=== PATIENT | male | born 1990 | race Caucasian/White ===

== ENCOUNTER → 2016-08-22 | Outpatient (REF) ==
[~2016-08-22] MED LIST: ADVIL PO; FISH1000 PO; GABA-283 PO; TRAZ150T14 PO
--- NOTE | 2016-08-22 13:59 | REP ---
Clinical: Pain and disability. Technique: AP and lateral views of the nasal bones. Findings: Subtle nondisplaced nasal bone fracture cannot be excluded and should be correlated with physical examination and history. The remainder of the osseous structures and surrounding soft tissues are normal. Impression: Innumerable nutrient foramen. Cannot exclude nondisplaced nasal bone fracture. Signed by Ibrahima Douglas MD 08/22/2016 01:50 P
--- NOTE | 2016-08-22 14:00 | REP ---
Clinical: Pain and disability. Technique: AP and lateral views of the right and left tibia / fibula. Findings: Osseous structures, joint spaces, and surrounding soft tissues appear normal. No evidence for acute or healed fracture/dislocation. No subcutaneous emphysema or radiodense foreign body. Bipartite right patella suggested. Impression: Normal bilateral tibia / fibula. Signed by Ibrahima Douglas MD 08/22/2016 01:51 P
== END ==
LOC: M SMT 12:57
PROVIDERS: ATTEND Internal Medicine
DX: Z02.71 Encounter for disability determination (principal)

== ENCOUNTER 2016-10-19 04:34 | Inpatient (IN) | payer OTHER ==
[~2016-10-19] VITALS: Ht 165.1 cm; Wt 95.3 kg
[2016-10-19] MEDS ORDERED: LEXA1TAB2 PO (04:44)
[2016-10-19 05:36] LABS: MEAN CORPUSCULAR HEMOGLOBIN 29.4 pg (27.0-33.0); MEAN CORPUSCULAR HGB CONC 33.8 g/dl (32.0-36.5); RED CELL DISTRIBUTION WIDTH 13.1 % (11.5-14.5); WHITE BLOOD COUNT 7.4 K/mm3 (4.0-10.0)
[2016-10-19] MEDS ORDERED: IBUP800T23 PO (05:40)
[2016-10-19] MEDS ORDERED: TRAZ150T14 PO (05:40)
[2016-10-19 05:57] LABS: METHADONE URINE NEGATIVE (NEGATIVE)
[2016-10-19 06:04] LABS: ALBUMIN 3.8 GM/DL (3.2-5.2); ALBUMIN/GLOBULIN RATIO 1.19 (1.00-1.93); ALKALINE PHOSPHATASE 99 U/L (45-117); ALT/SGPT 43 U/L (12-78); ANION GAP 7 MEQ/L (8-16); AST/SGOT 28 U/L (15-37); BILIRUBIN,DIRECT 0.1 MG/DL (0.0-0.2); BILIRUBIN,TOTAL 0.4 MG/DL (0.2-1.0); BLOOD UREA NITROGEN 18 MG/DL (7-18); CALCIUM LEVEL 8.6 MG/DL (8.5-10.1); CARBON DIOXIDE LEVEL 27 MEQ/L (21-32); CHLORIDE LEVEL 107 MEQ/L (98-107); CREATININE FOR GFR 1.16 MG/DL (0.70-1.30); GLOMERULAR FILTRATION RATE > 60.0 (>60); GLUCOSE, FASTING 100 MG/DL (70-105); POTASSIUM SERUM 4.2 MEQ/L (3.5-5.1); SODIUM LEVEL 141 MEQ/L (136-145)
[2016-10-19] MEDS ORDERED: ACETAMINOPHEN TAB 650MG DOSE (2X325MG) PO PRN (07:00)
[2016-10-19] MEDS ORDERED: MAALOX 30 ML SUSP *UDC PO PRN (07:00)
[2016-10-19] MEDS ORDERED: traZODone 50 MG TAB PO PRN (07:00)
[2016-10-19 08:35] VITALS: BP 138/66
[2016-10-19] MEDS ORDERED: PROTPOW11 PO (08:42)
[2016-10-19] MEDS: ESCITALOPRAM OXALATE 10 MG TAB (LEXAPRO) PO SCH (11:23)
--- NOTE | 2016-10-19 11:25 | HPEPDOC ---
Medical History and Physical Date of Admission Oct 19, 2016 at 07:00 History and Physical PCP: [facility] ATTENDING: Dr. Efrain Oseguera HPI: 26 yo M admitted to [facility] for depressive disorder NOS, being medically examined today. No acute medical complaints today. Denies any fevers, chills, weakness, fatigue, DAVIDSON, CP, SOB, cough, palpitations, abdominal pain, N/V/D or changes in bowel or bladder habits. PMHx: Depression Anxiety Chronic Rt knee pain PSHX: History of nasal fracture 2 Right hand fracture Left hand fracture [place] teeth extraction SOCHX: Resides in: [facility], from [place] Marital Status: Single Kids: None Employment: Active duty Tobacco use: 4 per day ETOH: denies Illicit Drugs: denies, Stopped marijuana approximately 1 year ago IV Drug Use: Denies Tattoos done unprofessionally: Denies FAMHX: Mother: Alive, history of metastatic cancer Father: Unknown Siblings: 1 Brother well. Children: None Unexpected deaths due to medical reasons: None. ROS: As noted in HPI, otherwise 11pt ROS of systems reviewed and remarkable for LBP. Denies LE pain. No LE weakness, paresthesia. No prior imaging of LS spine but he would like this done. States it is worse with sleeping in bed here. PE: GEN: 26 yo M, appears stated age. Well-nourished, well developed. No acute distress. Alert and oriented x 3. Pleasant, interactive. HEENT: Normocephalic, atraumatic. Pupils are equal, round, and reactive to light. Extraocular movements are intact. No nystagmus appreciated. Sclera are nonicteric. Conjunctiva without injection. Nose midline. Nasal turbinates without bogginess. EACs both patent BL. TMs both visualized and stephens with good cone of light, no bulging or erythema. No facial asymmetry. Moist mucous membranes. Dentition fair. Pharynx pink and moist, no cobblestoning. Neck supple , trachea midline. No lymphadenopathy or thyromegaly appreciated. CHEST: Regular rate and rhythm, +S1, +S2 LUNGS: Clear to auscultation bilaterally. No wheezes, rales, or rhonchi. Breathing appears symmetric and easy. Patient is speaking in full sentences. No accessory muscle use. ABD: Round, soft, non-tender, non-distended. +Bowel sounds throughout. No rebound or guarding. No costovertebral angle tenderness. EXT: Pulses 2+ bilaterally dorsalis pedis and radial. No lower extremity edema appreciated. SKIN: Stevenson, dry, warm. Capillary refill <2sec. No rashes. NEURO: Alert and oriented x 3. Cranial nerves III-XII are intact. No focal deficits appreciated. EK05/03/[address] SIN[address] RHYTHM [address] ELEVATION, PROBABLY EARLY REPOLARIZATION NO PRIOR t wave abn INFERIOR QS NOT PATHOLOGIC A&P: 26 yo M admitted to [facility] for unspecified depressive disorder 1. Psych. Plan per Psychiatry. EKG on file. 2. Nicotine dependence. Patch available. 3. LBP. Check XR LS Spine. Pt may use Ibuprofen as needed as he states this is what works for him. 4. Follow up with PCP on discharge. [facility]. 5. Substance use, Per Psychiatry. 6. Staff member Ed present throughout exam. Vital Signs Vital Signs Date Time Temp Pulse Resp B/P Pulse Ox O2 Delivery O2 Flow Rate FiO2 10/19/16 08:35 97.8 55 16 138/66 97 Room Air Laboratory Data Labs 24H Laboratory Tests 2 10/19/16 05:11: Urine Amphetamines Screen NEGATIVE, Urine Benzodiazepines Screen NEGATIVE, Urine Opiates Screen NEGATIVE, Urine Barbiturates Screen NEGATIVE, Urine Cannabinoids Screen POSITIVEH, Urine Cocaine Metabolite Screen NEGATIVE, Urine Methadone Screen NEGATIVE, Urine Phencyclidine Screen NEGATIVE 10/19/16 05:15: Acetaminophen Level < 2.0L, Aspartate Amino Transf (AST/SGOT) 28, Alanine Aminotransferase (ALT/SGPT) 43, Alkaline Phosphatase 99, Total Bilirubin 0.4, Direct Bilirubin 0.1, Albumin 3.8, Albumin/Globulin Ratio 1.19, Anion Gap 7L, Calcium Level 8.6, Ethyl Alcohol Level < 0.003, Glomerular Filtration Rate > 60.0, Salicylates Level < 1.7L, Thyroid Stimulating Hormone (TSH) 1.180, Total Protein 7.0 CBC/BMP Laboratory Tests 10/19/16 05:15 Red Blood Count 5.40, Mean Corpuscular Volume 87.0, Mean Corpuscular Hemoglobin 29.4, Mean Corpuscular Hemoglobin Concent 33.8, Red Cell Distribution Width 13.1 Home Medications Scheduled (Protein) 1 Pow Pow 1 POW PO 5XW Pre-workout Escitalopram Oxalate (Lexapro) 20 Mg Tab 20 MG PO DAILY Trazodone HCl (Trazodone HCl) 150 Mg Tab 150 MG PO QHS Scheduled PRN Ibuprofen (Ibuprofen) 800 Mg Tab 800 MG PO Q6H PRN PRN PAIN Allergies Coded Allergies: No Known Allergies (Unverified , 05/02/16) Ling Wolfe Oct 19, 2016 11:25
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
--- NOTE | 2016-10-19 13:50 | REP ---
LUMBAR SPINE SERIES: FIVE VIEWS. HISTORY: Pain. FINDINGS: Five views of the lumbar spine demonstrate preserved vertebral body heights and normal alignment. Disc spaces are maintained. Pedicles and posterior elements are intact. Psoas margins are symmetric. Sacrum and SI joints are unremarkable. There is no evidence of spondylolysis or spondylolisthesis. IMPRESSION: Normal lumbar spine radiographs. Signed by Derick Johnston MD 10/19/2016 04:59 P
[2016-10-19 18:00] VITALS: BP 119/56
[2016-10-19] MEDS: traZODone 50 MG TAB PO PRN (21:16)
[2016-10-19] MEDS: IBUPROFEN 400 MG TAB PO PRN (21:17)
[2016-10-20 06:20] VITALS: BP_SYST 122; BP_SYST 138; BP_DIAS 57; BP_DIAS 84
[2016-10-20] MEDS: ESCITALOPRAM OXALATE 10 MG TAB (LEXAPRO) PO SCH (08:33)
[2016-10-20] MEDS: DOCUSATE SODIUM 100 MG CAP PO SCH ×2 (13:57→22:23)
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
[2016-10-20 18:00] VITALS: BP 142/74
[2016-10-20] MEDS: traZODone 50 MG TAB PO PRN (22:23)
[2016-10-21 06:58] VITALS: BP 132/71
[2016-10-21] MEDS: ESCITALOPRAM OXALATE 10 MG TAB (LEXAPRO) PO SCH (08:57)
[2016-10-21] MEDS: DOCUSATE SODIUM 100 MG CAP PO SCH ×2 (08:57→21:56)
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
[2016-10-21 18:00] VITALS: BP 140/68
[2016-10-21] MEDS: DIVALPROEX SPRINKLE 125 MG CAP PO SCH (21:00)
[2016-10-21] MEDS: traZODone 50 MG TAB PO PRN (21:56)
[2016-10-21] MEDS: IBUPROFEN 400 MG TAB PO PRN (21:56)
[2016-10-22 07:04] VITALS: BP 133/61
[2016-10-22] MEDS: DIVALPROEX SPRINKLE 125 MG CAP PO SCH ×3 (09:04→20:27)
[2016-10-22] MEDS: ESCITALOPRAM OXALATE 10 MG TAB (LEXAPRO) PO SCH (09:04)
[2016-10-22] MEDS: DOCUSATE SODIUM 100 MG CAP PO SCH ×2 (09:04→20:27)
[2016-10-22] MEDS: MOM 30ML SUSPENSION UDC PO PRN (10:58)
[2016-10-22 18:00] VITALS: BP 125/60
[2016-10-22] MEDS: traZODone 50 MG TAB PO PRN (21:22)
[2016-10-23 06:35] VITALS: BP 122/59
[2016-10-23] MEDS: ESCITALOPRAM OXALATE 10 MG TAB (LEXAPRO) PO SCH (08:42)
[2016-10-23] MEDS: DIVALPROEX SPRINKLE 125 MG CAP PO SCH ×2 (08:42→21:34)
[2016-10-23] MEDS: DOCUSATE SODIUM 100 MG CAP PO SCH ×2 (08:42→21:34)
--- NOTE | 2016-10-23 14:13 | IPNPDOC ---
[facility] Progress Note Progress Note DATE OF SERVICE: 10/23/16 HISTORY: day 5 of admission. Meeting with Command VITAL SIGNS: See below. NEW TEST RESULTS: na CURRENT MEDICATIONS: See below. MENTAL STATUS EXAMINATION: Patient is a 26-year old male, who is being tx for MDD severe, r/o Bipolar I disorder. Dressed in hospital attire. Good hygiene. Good eye contact. Speech: Is fluent, spontaneous Language skills are good. Thought processes : goal directed Thought content: future oriented Abstract reasoning, and computation: good. Description of associations: god. Description of abnormal or psychotic thoughts: no suicidality, no psychotic symptoms illicited. Judgment: good Insight: good, Orientation: A & O x 3. Recent and remote memory: intact Attention span and concentration: adequate Fund of knowledge: Full Mood: anxious Affect: congruent DIAGNOSES: 1. Bipolar I disorder, current episode mixed 2. MDD by history 3. Cannabis dependence ASSESSMENT:Pt is reporting some difficulty sleeping. It is often noisy on the unit. Last night a pt was having an issue just as many peers were trying to fall asleep. Obdulio reports latency in onset as well as difficulty maintaining sleep. Obdulio fully participate in Command meeting today with Hammerer and newspaper writer. Presented himself well. Asked for privacy with Command and that was granted. He has been adhering to medication regime and follows unit protocols. No side effects observed or reported with depakote, which was started by Dr. Worthington in the [facility] formulary. MANAGEMENT PLAN: Increase depakote at hs to 500 mg. maintain depakote 250 mg in a.m. Observe for any improvement in sleep. May take a day or 2. Pt concerned with weight gain and measures to counteract that were discussed. Continue close observation though pt has been behaving well on unit and does not present with suicidal thoughts or homicidal thinking. Will meet with Le[employer]ek again next week. Continue medication adjustment for mood stabilization and insomnia. Will obtain a depakote level later this week or next week. TIME SPENT: 30 minutes. Vital Signs Vital Signs Date Time Temp Pulse Resp B/P Pulse Ox O2 Delivery O2 Flow Rate FiO2 10/23/16 06:35 98.2 63 16 122/59 10/19/16 08:35 97 Room Air Current Medications Current Medications Acetaminophen (Tylenol Tab) 650 mg Q6HP PRN PO HEADACHE or DISCOMFORT; Start at 07:00; Stop 11/18/16 at 06:59 Al Hydrox/Mg Hydrox/Simethicone (Mylanta) 30 ml Q4HP PRN PO HEARTBURN/ INDIGESTION; Start 10/19/16 at 07:00; Stop 11/18/16 at 06:59 Divalproex Sodium (Depakote Sprinkles) 250 mg BID PO Last administered on 08:42; Start 10/21/16 at 21:00; Stop 10/23/16 at 12:46; Status DC Divalproex Sodium (Depakote Sprinkles) 250 mg QAM PO ; Start 10/24/16 at 09:00; Stop 11/23/16 at 08:59 Divalproex Sodium (Depakote Sprinkles) 500 mg QHS PO ; Start 10/23/16 at 21:00; Stop 11/22/16 at 20:59 Docusate Sodium (Colace) 100 mg BID PO Last administered on 10/23/16 08:42; Start 10/20/16 at 09:00; Stop 11/19/16 at 08:59 Escitalopram Oxalate (Lexapro) 20 mg DAILY PO Last administered on 10/23/16 08 :42; Start 10/19/16 at 09:00; Stop 11/18/16 at 08:59 Home Med (Med Rec Complete!) ASDIRECTED XX ; Start 10/19/16 at 05:45; Stop at 05:59; Status DC Ibuprofen (Advil) 400 mg Q6HP PRN PO PAIN Last administered on 10/21/16 21:56 ; Start 10/19/16 at 11:30; Stop 11/18/16 at 11:29 Magnesium Hydroxide (Milk Of Magnesia) 30 ml DAILYPRN PRN PO CONSTIPATION Last administered on 10/22/16 10:58; Start 10/19/16 at 07:00; Stop 11/18/16 at 06:59 Trazodone HCl (Desyrel) 50 mg QHSP PRN PO INSOMNIA; Start 10/19/16 at 07:00; Stop 10/19/16 at 11:06; Status DC Trazodone HCl (Desyrel) 150 mg QHSP PRN PO INSOMNIA Last administered on 4/24/ 17at 21:22; Start 10/19/16 at 11:15; Stop 11/18/16 at 11:14 Allergies Coded Allergies: No Known Allergies (Unverified , 05/02/16) Theresa Robison Oct 23, 2016 14:13
[2016-10-23 18:00] VITALS: BP 197/77
[2016-10-23] MEDS: traZODone 50 MG TAB PO PRN (21:34)
[2016-10-24 06:38] VITALS: BP 144/70
[2016-10-24] MEDS ORDERED: DIVALPROEX SPRINKLE 125 MG CAP PO SCH (09:00)
[2016-10-24] MEDS: DOCUSATE SODIUM 100 MG CAP PO SCH ×2 (09:15→22:01)
[2016-10-24] MEDS: ESCITALOPRAM OXALATE 10 MG TAB (LEXAPRO) PO SCH (09:16)
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
[2016-10-24 18:00] VITALS: BP 128/59
[2016-10-24] MEDS: DIVALPROEX SPRINKLE 125 MG CAP PO SCH (21:59)
[2016-10-24] MEDS: IBUPROFEN 400 MG TAB PO PRN (22:00)
[2016-10-24] MEDS: traZODone 50 MG TAB PO PRN (22:00)
[2016-10-25 06:41] VITALS: BP 135/65
[2016-10-25] MEDS: ESCITALOPRAM OXALATE 10 MG TAB (LEXAPRO) PO SCH (08:50)
[2016-10-25] MEDS: DOCUSATE SODIUM 100 MG CAP PO SCH ×2 (08:51→21:16)
--- NOTE | 2016-10-25 11:26 | IPNPDOC ---
[facility] Progress Note Progress Note DATE OF SERVICE: 10/25/16 HISTORY: Day 7 of admission. Pt was caught with contraband last night. VITAL SIGNS: See below. NEW TEST RESULTS: awaiting depakote level CURRENT MEDICATIONS: See below. MENTAL STATUS EXAMINATION: Patient is a 26-year old male, who is interviewed on the unit, wearing long sleeved shirt and hospital PJ bottoms. Hygiene is good. Speech: Is clear, fluent, spontaneous. Language skills are good. Thought processes including:linear and goal directed. Thought content: explained about the contraband, discharge, learning about his illness.. Abstract reasoning, and computation: good. Description of associations : good. Description of abnormal or psychotic thoughts: none present, not psychotic. Not suicidal or homicidal. Judgment: good. Insight: good. Orientation: oriented x 3 Recent and remote memory: intact Attention span and concentration: good., Fund of knowledge: full. Mood: euthymic. Affect: full range of affect. DIAGNOSES: 1. Bipolar I, current episode mixed, severe 2. 3. ASSESSMENT:Pt is adjusting to changing doses of depakote. he slept much better last night when hs dose of depakote increased to 500 mg. His total daily dose is 750 mg. He states that the combination of lexapro and depakote "makes me feel more like myself". He states he feels relaxed and in control. Pt admits to smuggling the snuff on the unit. We discussed the importance of following rules in all areas and how not doing so complicates progress. Pt states he accepts responsibility for his actions. Pt stated he believes he will be ready for discharge on Saturday. DP notified as WILFREDO will need to meet him here. Pt can continue depakote titration at [facility]. MANAGEMENT PLAN: awaiting depakote level. continue meds and observation status as ordered. Follow rules regarding items permitted on unit. TIME SPENT: 50 minutes. Vital Signs Vital Signs Date Time Temp Pulse Resp B/P (MAP) Pulse Ox O2 Delivery O2 Flow Rate FiO2 10/25/16 06:41 97.3 53 18 135/65 (88) 10/24/16 18:00 Room Air 10/19/16 08:35 97 Laboratory Data 24H Labs Laboratory Tests 2 10/24/16 14:50: Valproic Acid (Depakene) Level 51.5 Current Medications Current Medications Acetaminophen (Tylenol Tab) 650 mg Q6HP PRN PO HEADACHE or DISCOMFORT; Start at 07:00; Stop 11/18/16 at 06:59 Al Hydrox/Mg Hydrox/Simethicone (Mylanta) 30 ml Q4HP PRN PO HEARTBURN/ INDIGESTION; Start 10/19/16 at 07:00; Stop 11/18/16 at 06:59 Divalproex Sodium (Depakote Sprinkles) 250 mg BID PO Last administered on 08:42; Start 10/21/16 at 21:00; Stop 10/23/16 at 12:46; Status DC Divalproex Sodium (Depakote Sprinkles) 250 mg QAM PO Last administered on 09:15; Start 10/24/16 at 09:00; Stop 10/24/16 at 12:33; Status DC Divalproex Sodium (Depakote Sprinkles) 500 mg QHS PO Last administered on 21:59; Start 10/23/16 at 21:00; Stop 11/22/16 at 20:59 Docusate Sodium (Colace) 100 mg BID PO Last administered on 10/25/16 08:51; Start 10/20/16 at 09:00; Stop 11/19/16 at 08:59 Escitalopram Oxalate (Lexapro) 20 mg DAILY PO Last administered on 10/25/16 08 :50; Start 10/19/16 at 09:00; Stop 11/18/16 at 08:59 Home Med (Med Rec Complete!) ASDIRECTED XX ; Start 10/19/16 at 05:45; Stop at 05:59; Status DC Ibuprofen (Advil) 400 mg Q6HP PRN PO PAIN Last administered on 10/24/16 22:00 ; Start 10/19/16 at 11:30; Stop 11/18/16 at 11:29 Magnesium Hydroxide (Milk Of Magnesia) 30 ml DAILYPRN PRN PO CONSTIPATION Last administered on 10/22/16 10:58; Start 10/19/16 at 07:00; Stop 11/18/16 at 06:59 Trazodone HCl (Desyrel) 50 mg QHSP PRN PO INSOMNIA; Start 10/19/16 at 07:00; Stop 10/19/16 at 11:06; Status DC Trazodone HCl (Desyrel) 150 mg QHSP PRN PO INSOMNIA Last administered on t 22:00; Start 10/19/16 at 11:15; Stop 11/18/16 at 11:14 Allergies Coded Allergies: No Known Allergies (Unverified , 05/02/16) Theresa Robison Oct 25, 2016 11:26
[2016-10-25 18:00] VITALS: BP 119/58
[2016-10-25] MEDS: DIVALPROEX SPRINKLE 125 MG CAP PO SCH (21:16)
[2016-10-25] MEDS: traZODone 50 MG TAB PO PRN (21:16)
[2016-10-25] MEDS: IBUPROFEN 400 MG TAB PO PRN (21:17)
[2016-10-26 07:15] VITALS: BP 142/60
[2016-10-26] MEDS: ESCITALOPRAM OXALATE 10 MG TAB (LEXAPRO) PO SCH (08:44)
[2016-10-26] MEDS: DOCUSATE SODIUM 100 MG CAP PO SCH ×2 (08:44→21:01)
[2016-10-26] MEDS: MOM 30ML SUSPENSION UDC PO PRN (08:47)
--- NOTE | 2016-10-26 14:00 | IPNPDOC ---
[facility] Progress Note Progress Note DATE OF SERVICE: 10/26/16 HISTORY: Day 8 of admission VITAL SIGNS: See below. NEW TEST RESULTS: depakote level subtherapeutic CURRENT MEDICATIONS: See below. MENTAL STATUS EXAMINATION: Patient is a 26-year old male, who is casually attired in hospital garb, hygiene is good, pleasant, appears stated age. Speech: Is clear, spontaneous Language skills are intact Thought processes including: goal directed Thought content: medications, treatment, discharge from [employer], anxiety. Abstract reasoning, and computation: good. Description of associations: good. Description of abnormal or psychotic thoughts: Pt denies suicidal thoughts today. He denies perceptual disturbance. Judgment: good. Insight: good. Orientation: A& O x 3 Recent and remote memory: good Attention span and concentration: adequate Fund of knowledge: Full Mood: anxious but less depressed Affect: congruent DIAGNOSES: 1. Bipolar I disorder current episode mixed 2. MDD by history ASSESSMENT:pt is adjusting to increasing doses of depakote. He is not in a therapeutic range yet. He is tolerating the titration. No side effects reported. perseverates about weight gain. Strategies to combat this discussed. We continue to discuss his diagnosis and how this affects his life. The importance of regular treatment and maintaining his medications as prescribed was discussed. Mr. Curtis participated in therapeutic groups on the unit. he is getting along with others. No problems with rules violations since the night before where he was in possession of canned tobacco. Pt stated he uses it for calming and bowel regularity. MANAGEMENT PLAN: continue depakote titration. Will make sure he gets 250mg in a.m. and 750mg at hs. He is aware. Continue lexapro and trazodone. May have vistaril prn for anxiety. Will recheck depakote level on Saturday. TIME SPENT: 30 minutes. Vital Signs Vital Signs Date Time Temp Pulse Resp B/P (MAP) Pulse Ox O2 Delivery O2 Flow Rate FiO2 10/26/16 07:15 98.1 51 18 142/60 (87) 10/25/16 18:00 97 Room Air Laboratory Data 24H Labs Laboratory Tests 2 10/25/16 14:59: Valproic Acid (Depakene) Level 38.2L Current Medications Current Medications Acetaminophen (Tylenol Tab) 650 mg Q6HP PRN PO HEADACHE or DISCOMFORT; Start at 07:00; Stop 11/18/16 at 06:59 Al Hydrox/Mg Hydrox/Simethicone (Mylanta) 30 ml Q4HP PRN PO HEARTBURN/ INDIGESTION; Start 10/19/16 at 07:00; Stop 11/18/16 at 06:59 Divalproex Sodium (Depakote Sprinkles) 250 mg BID PO Last administered on 08:42; Start 10/21/16 at 21:00; Stop 10/23/16 at 12:46; Status DC Divalproex Sodium (Depakote Sprinkles) 250 mg QAM PO Last administered on 09:15; Start 10/24/16 at 09:00; Stop 10/24/16 at 12:33; Status DC Divalproex Sodium (Depakote Sprinkles) 250 mg QAM PO ; Start 10/27/16 at 09:00; Stop 11/26/16 at 08:59 Divalproex Sodium (Depakote Sprinkles) 500 mg QHS PO Last administered on 21:16; Start 10/23/16 at 21:00; Stop 10/26/16 at 09:54; Status DC Divalproex Sodium (Depakote Sprinkles) 750 mg QHS PO ; Start 10/26/16 at 21:00; Stop 11/25/16 at 20:59 Docusate Sodium (Colace) 100 mg BID PO Last administered on 10/26/16 08:44; Start 10/20/16 at 09:00; Stop 11/19/16 at 08:59 Escitalopram Oxalate (Lexapro) 20 mg DAILY PO Last administered on 10/26/16 08 :44; Start 10/19/16 at 09:00; Stop 11/18/16 at 08:59 Home Med (Med Rec Complete!) ASDIRECTED XX ; Start 10/19/16 at 05:45; Stop at 05:59; Status DC Ibuprofen (Advil) 400 mg Q6HP PRN PO PAIN Last administered on 10/25/16 21:17 ; Start 10/19/16 at 11:30; Stop 11/18/16 at 11:29 Magnesium Hydroxide (Milk Of Magnesia) 30 ml DAILYPRN PRN PO CONSTIPATION Last administered on 10/26/16 08:47; Start 10/19/16 at 07:00; Stop 11/18/16 at 06:59 Trazodone HCl (Desyrel) 50 mg QHSP PRN PO INSOMNIA; Start 10/19/16 at 07:00; Stop 10/19/16 at 11:06; Status DC Trazodone HCl (Desyrel) 150 mg QHSP PRN PO INSOMNIA Last administered on 21:16; Start 10/19/16 at 11:15; Stop 11/18/16 at 11:14 Allergies Coded Allergies: No Known Allergies (Unverified , 05/02/16) Theresa Robison Oct 26, 2016 14:00
[2016-10-26] MEDS ORDERED: hydrOXYzine 50 MG TAB PO PRN (14:15)
[2016-10-26 18:00] VITALS: BP 140/68
[2016-10-26] MEDS: DIVALPROEX SPRINKLE 125 MG CAP PO SCH (21:02)
[2016-10-26] MEDS: traZODone 50 MG TAB PO PRN (22:29)
[2016-10-27 06:31] VITALS: BP 119/54
[2016-10-27] MEDS: DOCUSATE SODIUM 100 MG CAP PO SCH ×2 (07:42→21:19)
[2016-10-27] MEDS: ESCITALOPRAM OXALATE 10 MG TAB (LEXAPRO) PO SCH (07:43)
[2016-10-27] MEDS ORDERED: DIVALPROEX SPRINKLE 125 MG CAP PO SCH (09:00)
[2016-10-27 18:00] VITALS: BP 121/56
[2016-10-27] MEDS: traZODone 50 MG TAB PO PRN (21:19)
[2016-10-27] MEDS: DIVALPROEX SPRINKLE 125 MG CAP PO SCH (21:20)
[2016-10-28 07:00] VITALS: BP 122/56
[2016-10-28] MEDS: DOCUSATE SODIUM 100 MG CAP PO SCH ×2 (08:36→20:20)
[2016-10-28] MEDS: ESCITALOPRAM OXALATE 10 MG TAB (LEXAPRO) PO SCH (08:36)
[2016-10-28 18:00] VITALS: BP 111/56
[2016-10-28] MEDS: DIVALPROEX SPRINKLE 125 MG CAP PO SCH (20:21)
[2016-10-28] MEDS: traZODone 50 MG TAB PO PRN (20:21)
[2016-10-29 06:41] VITALS: BP 118/68
[2016-10-29] MEDS: DOCUSATE SODIUM 100 MG CAP PO SCH (08:32)
[2016-10-29] MEDS: ESCITALOPRAM OXALATE 10 MG TAB (LEXAPRO) PO SCH (08:32)
[2016-10-29] MEDS ORDERED: DIVALPROEX SPRINKLE 125 MG CAP PO SCH (09:00)
[2016-10-29] MEDS ORDERED: HYDRO50TAB PO (11:00)
[2016-10-29] MEDS ORDERED: DEPA125C PO (11:00)
--- NOTE | 2016-10-29 12:45 | DS.PDOC ---
[facility] Discharge Summary Discharge Summary DATE OF ADMISSION: Oct 19, 2016 at 07:00 DATE OF DISCHARGE: Day 11 of admission DISCHARGE DIAGNOSES: 1. Bipolar I disorder current episode mixed 2. Major depressive disorder by history REASON FOR ADMISSION: [place] instructions from his doctor not to life over 5 lbs and other restrictions. He feels his residential team leader has little regard for his health and has been ordering him to lift and move things that his doctor told him not to do. He used an axe to chop the cuellar in his barracks versus turning the axe on himself. His thought was to use the axe to"cut my head open". CONSULTANTS INVOLVED: na TREATMENT AND PROGRESS ON THE UNIT : Pt met with his Commanding officer for a WILFREDO meeting. [employer] will facilitate his return to work but in keeping with his profile.He was informed by the captain to make sure the leaders have a copy of his doctors instructions.Pt has been prescribed an increase in Lexapro from 10 mg to 20 mg and started on Depakote> No rash, or sluggishness occurred. HOSPITAL COURSE: Pt reports feeling more even in mood and temperament due to medication changes. Depakote levels obtained. Pt is approaching therapeutic range. Currently at 48 mg/dl. He will be discharged with lexapro, depakote and hydroxyzine scripts per his request. Pt states he has plenty of quetiapine. DISCHARGE ASSESSMENT: Pt is no longer having suicidal thoughts. He is very stable and has adjusted to theses new meds quickly. He is movitivated to finish out his term, get med boarded and start a future in the [place] area where his family resides. MENTAL STATUS EXAMINATION ON DISCHARGE: Patient is a 26 year old male, who appears his given age. Good eye contact, hygiene is good. Speech is fluent, sontaneous Language skills are good Thought processes including: linear, goal directed. Thought content: appropriate Abstract reasoning, and computation: good Description of associations: good Description of abnormal or psychotic thoughts: none Judgment: good Insight: good Orientation to x 4 Recent and remote memory: intact Attention span and concentration: good Fund of knowledge: full Mood: euthymic Affect: congruent,broad range. MEDICATIONS ON DISCHARGE: - escitalopramfor depression/anxiety - hydroxyzine for anxiety upto twice daily as needed. . -depakote sprinkle [id number] mg in a.m. and 750 at has. PLAN/FOLLOWUP ARRANGEMENTS: [facility] The amount of time spent in the coordination of care for this patient was approximately 30 minutes. Vital Signs/I&Os Vital Signs Date Time Temp Pulse Resp B/P (MAP) Pulse Ox O2 Delivery O2 Flow Rate FiO2 10/29/16 06:41 97.3 51 118/68 (85) 10/28/16 18:00 16 10/25/16 18:00 97 Room Air Laboratory Data Labs 24H Laboratory Tests 2 10/28/16 14:56: Valproic Acid (Depakene) Level 49.4L Medications Scheduled Divalproex Sodium (Depakote Sprinkles) 125 Mg Cap, 750 MG PO QHS for MOOD for 7 Days, #7 Escitalopram Oxalate (Lexapro) 20 Mg Tab, 20 MG PO DAILY, (Reported) Trazodone HCl (Trazodone HCl) 150 Mg Tab, 150 MG PO QHS, (Reported) Scheduled PRN Hydroxyzine HCl (Hydroxyzine HCl) 50 Mg Tab, 50 MG PO q 4 hours bid PRN for ANXIETY for 7 Days, #14 may take 1 tab po q 4 hours as needed for anxiety up to twice a day. Allergies Coded Allergies: No Known Allergies (Unverified , 05/02/16) Theresa Robison October 29, 2016 12:45
== END 2016-10-29 14:00 | disposition home or self-care (01) | DRG 885 ==
LOC: M ED 05:37 → M ED INP 07:00 → M PSY 08:12
PROVIDERS: ADMIT Psychiatry & Neurology Psychiatry; ATTEND Psychiatry & Neurology Psychiatry
DX: F31.60 Bipolar disorder, current episode mixed, unspecified (principal); M54.5 Low back pain; F19.90 Other psychoactive substance use, unspecified, uncomplicated; G47.00 Insomnia, unspecified; F17.210 Nicotine dependence, cigarettes, uncomplicated; Z79.899 Other long term (current) drug therapy; Z80.9 Family history of malignant neoplasm, unspecified

== ENCOUNTER 2016-11-30 04:35 | Inpatient (IN) | payer OTHER ==
[~2016-11-30] VITALS: Ht 165.1 cm; Wt 101.9 kg
[~2016-11-30 04:35] MED LIST changes: +DEPA125C PO; +HYDRO50TAB PO; +IBUP800T23 PO; +LEXA1TAB2 PO; +PROTPOW11 PO
[2016-11-30 05:50] LABS: MEAN CORPUSCULAR HEMOGLOBIN 31.1 pg (27.0-33.0); MEAN CORPUSCULAR HGB CONC 34.8 g/dl (32.0-36.5); MEAN CORPUSCULAR VOLUME 89.3 fl (80.0-96.0); RED CELL DISTRIBUTION WIDTH 13.4 % (11.5-14.5); WHITE BLOOD COUNT 8.1 K/mm3 (4.0-10.0)
[2016-11-30 06:09] LABS: METHADONE URINE NEGATIVE (NEGATIVE)
[2016-11-30 06:11] LABS: ALBUMIN/GLOBULIN RATIO 1.18 (1.00-1.93); ALKALINE PHOSPHATASE 125 U/L (45-117); ALT/SGPT 60 U/L (12-78); ANION GAP 11 MEQ/L (8-16); AST/SGOT 37 U/L (15-37); BILIRUBIN,DIRECT < 0.1 MG/DL (0.0-0.2); BILIRUBIN,TOTAL 0.2 MG/DL (0.2-1.0); BLOOD UREA NITROGEN 16 MG/DL (7-18); CALCIUM LEVEL 8.7 MG/DL (8.5-10.1); CARBON DIOXIDE LEVEL 25 MEQ/L (21-32); CHLORIDE LEVEL 108 MEQ/L (98-107); CREATININE FOR GFR 0.98 MG/DL (0.70-1.30); GLOMERULAR FILTRATION RATE > 60.0 (>60); GLUCOSE, FASTING 119 MG/DL (70-105); POTASSIUM SERUM 4.1 MEQ/L (3.5-5.1); SODIUM LEVEL 144 MEQ/L (136-145); TOTAL PROTEIN 7.4 GM/DL (6.4-8.2)
[2016-11-30] MEDS ORDERED: HYDR-4274 PO (12:29)
[2016-11-30] MEDS ORDERED: TRAZ150T14 PO (12:29)
[2016-11-30] MEDS ORDERED: LEXA1TAB2 PO (12:29)
[2016-11-30] MEDS ORDERED: DEPA500T2 PO (12:29)
[2016-11-30 14:24] VITALS: BP 141/63
[2016-11-30] MEDS ORDERED: MAALOX 30 ML SUSP *UDC PO PRN (15:30)
[2016-11-30] MEDS ORDERED: ACETAMINOPHEN TAB 650MG DOSE (2X325MG) PO PRN (15:30)
[2016-11-30] MEDS ORDERED: MOM 30ML SUSPENSION UDC PO PRN (15:30)
[2016-11-30] MEDS: hydrOXYzine 50 MG TAB PO PRN (16:11)
[2016-11-30] MEDS: ESCITALOPRAM OXALATE 10 MG TAB (LEXAPRO) PO SCH (16:12)
[2016-11-30 18:00] VITALS: BP 123/62
[2016-11-30] MEDS: traZODone 50 MG TAB PO PRN (22:29)
[2016-11-30] MEDS: DIVALPROEX 500MG *ER* TAB PO SCH (22:30)
[2016-12-01 06:02] VITALS: BP 139/66
[2016-12-01] MEDS: ESCITALOPRAM OXALATE 10 MG TAB (LEXAPRO) PO SCH (09:24)
[2016-12-01] MEDS: hydrOXYzine 50 MG TAB PO PRN ×2 (16:13→21:48)
[2016-12-01 18:00] VITALS: BP 134/66
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
[2016-12-01] MEDS: traZODone 50 MG TAB PO PRN (21:48)
[2016-12-01] MEDS: DIVALPROEX 500MG *ER* TAB PO SCH (21:48)
[2016-12-02 06:36] VITALS: BP 136/59
[2016-12-02] MEDS: ESCITALOPRAM OXALATE 10 MG TAB (LEXAPRO) PO SCH (08:18)
[2016-12-02] MEDS: hydrOXYzine 50 MG TAB PO PRN ×2 (08:18→18:15)
[2016-12-02 18:00] VITALS: BP 128/56
[2016-12-02] MEDS: traZODone 50 MG TAB PO PRN (21:01)
[2016-12-02] MEDS: DIVALPROEX 500MG *ER* TAB PO SCH (21:01)
--- NOTE | 2016-12-03 03:49 | IPN ---
DATE OF SERVICE: 12/02/2016 The patient today states that he is not depressed. He says "I'm feeling good." He has no complaints. He says he slept good. MENTAL STATUS EXAMINATION: This patient is alert and oriented times three, pleasant and cooperative, verbally spontaneous. Eye contact good. There is no formal thought disorder noted. He said his mood was good. His affect was full range and appropriate. He is not psychotic, suicidal or homicidal. Concentration is fair. Memory intact. Insight and judgment is fair. DIAGNOSES: 1. Bipolar disorder type 1, most recent episode mixed. 2. Cannabis use disorder. TREATMENT PLAN: At this point, the patient will continue to be monitored for continued resolution of suicidal ideations and for continued stabilization of his mood.
[2016-12-03 06:00] VITALS: BP 122/57
[2016-12-03] MEDS: ESCITALOPRAM OXALATE 10 MG TAB (LEXAPRO) PO SCH (09:10)
--- NOTE | 2016-12-03 11:29 | MHIPNPDOC ---
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 Patient indicates he had stopped taking his medications 3 days prior to the incident due to being out of town, adds he was feeling depressed and since he had not been taking his medications he "made a stupid decision" to go out drinking with his friends. Patient states prior to aforementioned incident he had been with alcohol for 6 months. Per EMR, patient has history of 2 prior suicide attempts, both at age 17. Batt Packer met with patient today to assess treatment progress on inpatient unit. Patient rates current anxiety level as 8/10, denies depression, denies suicidal and homicidal ideation, denies auditory and visual hallucinations, denies urge to engage in self-injurious behavior. 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 Patient states that hydroxyzine is not effective in controlling his symptoms of anxiety at this time, makes request for alternative medication. Patient states energy level, concentration and focus, and appetite are stable. Patient denies symptoms of physical pain and presents with no signs of acute distress at time of interaction. VITAL SIGNS: See below. NEW TEST RESULTS: Labs on admission indicated elevated chloride, glucose, and alkaline phosphatase Patient denies history of chronic medical conditions, denies seizure and head injury UDS positive for cannabinoids, EtOH 0.161 EKG pending CURRENT MEDICATIONS: See below. MENTAL STATUS EXAMINATION: Patient is a 26-year old male, who is pleasant and cooperative, easily engaged, makes good eye contact, exhibits adequate personal hygiene, is dressed in hospital clothing, ambulates with steady gait, appears stated age Speech: Is of normal rate, rhythm, volume, spontaneous, coherent Language skills are intact Thought processes including: Linear, logical, goal-directed Thought content: Rational, logical, no paranoia or tangentiality noted, no perseveration. Abstract reasoning, and computation: Appear intact Description of associations: Intact Description of abnormal or psychotic thoughts: Denies suicidal or homicidal ideation, denies auditory or visual hallucinations, does not appear to be responding to internal stimuli, is not endorsing bizarre or paranoid ideation, denies preoccupation with violence or obsessions. Judgment: Poor Insight: Poor Orientation: A and O 3 Recent and remote memory: Appear intact Attention span and concentration: Within normal limits Language: Adequate Fund of knowledge: Adequate Mood: "I feel fine, better, I'm just worried about with the [employer]'s gonna do to me." Affect: Constricted but brightens, congruent with mood DIAGNOSES: Bipolar I disorder, most recent episode mixed, polysubstance use disorder ASSESSMENT: Patient appears to be adjusting to unit, is visible, engaging selectively with staff and peers, has presented with no behavior management challenges. Patient expresses some insight regarding his decision to engage in excessive alcohol consumption after not taking his medications for 3 days, expresses remorse today and indicates symptoms of anxiety are the result of wondering what will become of his [facility] boarded process and if he is now facing Chapter. Patient has restarted his medications and informs typewriter mechanic he feels " much better," states medication regimen is generally effective, however, is requesting changed to PRN anxiolytic due to increase in symptoms of anxiety. Patient denies medication side effects. Patient denies suicidal and homicidal ideation and verbalizes awareness of how to access supportive services on the unit if needed. Will monitor patient as he really stabilizes on his medications and we'll monitor for medication side effects. Will evaluate patient's safety, resolution of suicidal ideation, and discharge readiness. Patient states when appropriate for discharge he would like to return to [place] to resume outpatient psychotherapy and medication management services, adds after he has completed med where process he plans to move back to [place] to be close to family.. MANAGEMENT PLAN: Continue Depakote ER 100 mg po q hs, trazodone 150 mg po q hs PRN insomnia, and Lexapro 20 mg po daily. Discontinue hydroxyzine. Initiate Seroquel 25 mg po BID PRN anxiety/agitation Maintain safety precautions Patient to attend groups and participate in unit programming to develop coping strategies Engage patient in discharge planning process and arrange meeting with command to evaluate safe discharge planning when appropriate Patient to follow up with Francesca VELAZQUEZ upon discharge TIME SPENT: 35 minutes. Vital Signs Vital Signs Date Time Temp Pulse Resp B/P (MAP) Pulse Ox O2 Delivery O2 Flow Rate FiO2 12/03/16 06:00 97.5 55 18 122/57 (78) 11/30/16 14:24 96 Room Air Current Medications Current Medications Acetaminophen (Tylenol Tab) 650 mg Q6HP PRN PO HEADACHE or DISCOMFORT; Start at 15:30; Stop 12/30/16 at 15:29 Al Hydrox/Mg Hydrox/Simethicone (Mylanta) 30 ml Q4HP PRN PO HEARTBURN/ INDIGESTION; Start 11/30/16 at 15:30; Stop 12/30/16 at 15:29 Divalproex Sodium (Depakote Er) 1,000 mg QHS PO Last administered on 12/02/16 21:01; Start 11/30/16 at 21:00; Stop 12/30/16 at 20:59 Escitalopram Oxalate (Lexapro) 20 mg DAILY PO Last administered on 12/03/16 09: 10; Start 11/30/16 at 09:00; Stop 12/30/16 at 08:59 Home Med (Med Rec Complete!) ASDIRECTED XX ; Start 11/30/16 at 12:30; Stop at 12:31; Status DC Hydroxyzine HCl (Atarax) 50 mg Q4HP PRN PO ANXIETY Last administered on 18:15; Start 11/30/16 at 15:30; Stop 12/30/16 at 15:29 Magnesium Hydroxide (Milk Of Magnesia) 30 ml DAILYPRN PRN PO CONSTIPATION Last administered on 12/02/16 21:12; Start 11/30/16 at 15:30; Stop 12/30/16 at 15:29 Trazodone HCl (Desyrel) 150 mg QHSP PRN PO INSOMNIA Last administered on 21:01; Start 11/30/16 at 15:30; Stop 12/30/16 at 15:29 Allergies Coded Allergies: No Known Allergies (Unverified , 05/02/16) Elvira Amaro Dec 03, 2016 11:29
[2016-12-03] MEDS: hydrOXYzine 50 MG TAB PO PRN (14:40)
[2016-12-03 18:00] VITALS: BP 148/65
[2016-12-03] MEDS: DIVALPROEX 500MG *ER* TAB PO SCH (20:24)
[2016-12-03] MEDS: traZODone 50 MG TAB PO PRN (20:24)
[2016-12-03] MEDS: QUEtiapine FUMARATE 25 MG TAB PO PRN (20:24)
--- NOTE | 2016-12-03 21:34 | HPE ---
DATE OF ADMISSION: 12/02/2016 HISTORY OF PRESENT ILLNESS: Please refer to psychiatric history and evaluation for further details on this admission. This examination and history is intended for medical issues, which may need treatment, followup, or consult on this 26-year-old male. ALLERGIES: No known allergies. PRIMARY CARE PROVIDER: Wolf Chang. PAST MEDICAL HISTORY: 1. Depression/anxiety. 2. Chronic right knee pain. PAST SURGICAL HISTORY: 1. History of nasal fracture times two. 2. Right hand fracture. 3. Left hand fracture. 4. [place] teeth extraction. 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 Smokes four cigarettes per day. States he has not had any marijuana since 10/19/2016, despite his urine being positive for cannabinoids. EtOH: None. FAMILY HISTORY: Mother alive, history of metastatic cancer. Father unknown. A 10-system review was done, but it was negative other than chronic knee pain. CURRENT MEDICATIONS: - Depakote ER 1000 mg by mouth at bedtime - Lexapro 20 mg by mouth by mouth daily - hydroxyzine 50 mg by mouth as needed for anxiety - trazodone 150 mg by mouth at bedtime LABORATORY STUDIES: Complete blood count (CBC) was normal. BUN 16 and creatinine 0.98. Urine positive for cannabinoids. EtOH was 0.161. States he does not drink on a regular basis. EKG showed sinus rhythm. PHYSICAL EXAMINATION: A 26-year-old cooperative male in no acute distress. Height 65 inches, weight 9.8 kg, body mass index (BMI) 56.6 Blood pressure is currently 128/56, pulse 61, respirations 16, temperature 97.8. Patient is alert and oriented times three. Pupils equal and react to light. Extraocular muscles intact. Cornea and sclerae are clear. Conjunctivae normal. No facial asymmetry. Pharynx, tongue, gums are pink and moist. Tongue is midline. NECK: Supple, without lymphadenopathy. No thyromegaly. No goiter. Carotids 2+ without bruit. CHEST: Clear to auscultation. No wheeze or retractions. HEART: Regular. ABDOMEN: Benign. Bowel sounds positive. GENITOURINARY/RECTAL: Not done. EXTREMITIES: Show equal strength. Full range of motion. No cyanosis, clubbing or edema. Peripheral pulses equal and palpable bilaterally. SKIN: Warm and dry. Cranial nerves III-XII grossly intact. IMPRESSION/PLAN: 1. Psychiatric. Plan per psychiatry. 2. Nicotine dependence. Patch available. 3. Chronic knee pain. Tylenol ordered. Followup with primary care provider on discharge at [facility].
--- NOTE | 2016-12-03 21:57 | ECGEPIP ---
Stationary ECG Study [facility] Test Date: 2016-12-03 Pat Name: PRABHU YOUNG Department: Room: [place] [address] Gender: M Automatic Cigar Wrapper Tender: ROLANDA : 1990 Requested By: Elvira Amaro Order Number: [id number] Reading MD: Efrain Oseguera Measurements Intervals [place] Rate: 59 P: 22 AK: 119 QRS: 48 QRSD: 97 T: 28 QT: 392 QTc: 390 Interpretive Statements SINUS BRADYCARDIA WITH SHORT AK INTERVAL Electronically Signed On 12-03-2016 21:57:08 EDT by Efrain Oseguera
[2016-12-04 06:28] VITALS: BP 118/59
[2016-12-04] MEDS: ESCITALOPRAM OXALATE 10 MG TAB (LEXAPRO) PO SCH (09:17)
[2016-12-04] MEDS: QUEtiapine FUMARATE 25 MG TAB PO PRN ×2 (12:44→20:30)
--- NOTE | 2016-12-04 15:35 | MHIPNPDOC ---
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 Patient indicates he had stopped taking his medications 3 days prior to the incident due to being out of town, adds he was feeling depressed and since he had not been taking his medications he "made a stupid decision" to go out drinking with his friends. Patient states prior to aforementioned incident he had been with alcohol for 6 months. Per EMR, patient has history of 2 prior suicide attempts, both at age 17. Critical Care Transport Nurse met with patient today to assess treatment progress on inpatient unit. Patient rates current anxiety level as 8/10 related to "my DWI and whether it's going to screw up my med board," anxiety 2/10, denies suicidal and homicidal ideation, denies auditory and visual hallucinations, denies urge to engage in self-injurious behavior. Patient states he is feeling "better, just anxious about the process for my DWI," adds he feels symptom improvement since medication restart, reiterates today he had stopped taking his medications 3 days prior to drinking and driving episode. Patient indicates he is sleeping well, denies nightmares, reports improvement to energy and concentration and focus levels, reports appetite is stable. Patient denies symptoms of physical pain and presents with no signs of acute distress at time of interaction. VITAL SIGNS: See below. NEW TEST RESULTS: Labs on admission indicated elevated chloride, glucose, and alkaline phosphatase MEDICAL/SURGICAL HISTORY: Chronic knee pain, history of nasal fracture 2, right hand fracture, left hand fracture, was time to think extraction Patient denies history of chronic medical conditions, denies seizure and head injury UDS positive for cannabinoids, EtOH 0.161 12/03/16 EKG sinus bradycardia with short NM interval CURRENT MEDICATIONS: See below. MENTAL STATUS EXAMINATION: Patient is a 26-year old male, who is pleasant and cooperative, easily engaged, makes good eye contact, exhibits adequate personal hygiene, is dressed in hospital clothing, ambulates with steady gait, appears stated age Speech: Is of mildly pressured, normal rhythm, volume, spontaneous, coherent Language skills are intact Thought processes including: Linear, logical, goal-directed Thought content: Rational, logical, no paranoia or tangentiality noted, no perseveration. Abstract reasoning, and computation: Appear intact Description of associations: Intact Description of abnormal or psychotic thoughts: Denies suicidal or homicidal ideation, denies auditory or visual hallucinations, does not appear to be responding to internal stimuli, is not endorsing bizarre or paranoid ideation, denies preoccupation with violence or obsessions. Judgment: Limited, some improvement noted Insight: Limited, some improvement noted Orientation: A and O 3 Recent and remote memory: Appear intact Attention span and concentration: Within normal limits Language: Adequate Fund of knowledge: Adequate Mood: "I feel better, the edge off, I'm just worried about my DWI and my med board situation." Affect: Constricted but brightens, congruent with mood DIAGNOSES: Bipolar I disorder, most recent episode mixed, polysubstance use disorder ASSESSMENT: Patient appears to be adjusting to unit, is visible, engaging selectively with staff and peers, has presented with no behavior management challenges. Patient expresses some insight regarding his decision to engage in excessive alcohol consumption after not taking his medications for 3 days, reiterates remorse today and indicates he remains anxious related to not knowing the outcome of DWI or whether he will be permitted to med board or be chaptered. Patient indicates current medication regimen is effective and he denies medication side effects, states change from hydroxyzine to PRN Seroquel is helpful in controlling symptoms of anxiety and stabilizing mood. Patient denies suicidal and homicidal ideation and verbalizes awareness of how to access supportive services on the unit if needed. Will continue to monitor patient as he stabilizes on his medications and will monitor for medication side effects. Will continue to evaluate patient's safety, resolution of suicidal ideation, and discharge readiness. Patient states when appropriate for discharge he would like to return to [place] to resume outpatient psychotherapy and medication management services, adds after he has completed med board process he plans to move back to [place] to be close to family. MANAGEMENT PLAN: Continue Depakote ER 100 mg po q hs, trazodone 150 mg po q hs PRN insomnia, Lexapro 20 mg po daily, and Seroquel 25 mg po BID PRN anxiety/ agitation Labs ordered for 12/06/16 Maintain safety precautions Patient to attend groups and participate in unit programming to develop coping strategies Engage patient in discharge planning process and arrange meeting with command to evaluate safe discharge planning when appropriate Patient to follow up with [place] [facility] upon discharge TIME SPENT: 35 minutes. Vital Signs Vital Signs Date Time Temp Pulse Resp B/P (MAP) Pulse Ox O2 Delivery O2 Flow Rate FiO2 12/04/16 06:28 98.1 50 16 118/59 (78) 11/30/16 14:24 96 Room Air Current Medications Current Medications Acetaminophen (Tylenol Tab) 650 mg Q6HP PRN PO HEADACHE or DISCOMFORT; Start at 15:30; Stop 12/30/16 at 15:29 Al Hydrox/Mg Hydrox/Simethicone (Mylanta) 30 ml Q4HP PRN PO HEARTBURN/ INDIGESTION; Start 11/30/16 at 15:30; Stop 12/30/16 at 15:29 Divalproex Sodium (Depakote Er) 1,000 mg QHS PO Last administered on 12/03/16 20:24; Start 11/30/16 at 21:00; Stop 12/30/16 at 20:59 Escitalopram Oxalate (Lexapro) 20 mg DAILY PO Last administered on 12/04/16 09: 17; Start 11/30/16 at 09:00; Stop 12/30/16 at 08:59 Home Med (Med Rec Complete!) ASDIRECTED XX ; Start 11/30/16 at 12:30; Stop at 12:31; Status DC Hydroxyzine HCl (Atarax) 50 mg Q4HP PRN PO ANXIETY Last administered on 14:40; Start 11/30/16 at 15:30; Stop 12/03/16 at 19:20; Status DC Magnesium Hydroxide (Milk Of Magnesia) 30 ml DAILYPRN PRN PO CONSTIPATION Last administered on 12/02/16 21:12; Start 11/30/16 at 15:30; Stop 12/30/16 at 15:29 Quetiapine Fumarate (SEROquel) 25 mg BID PRN PO anxiety/agitation Last administered on 12/04/16 12:44; Start 12/03/16 at 19:30; Stop 01/02/17 at 19:29 Trazodone HCl (Desyrel) 150 mg QHSP PRN PO INSOMNIA Last administered on 20:24; Start 11/30/16 at 15:30; Stop 12/30/16 at 15:29 Allergies Coded Allergies: No Known Allergies (Unverified , 05/02/16) Elvira Amaro Dec 04, 2016 15:35
[2016-12-04 18:00] VITALS: BP 129/61
[2016-12-04] MEDS: traZODone 50 MG TAB PO PRN (21:33)
[2016-12-04] MEDS: DIVALPROEX 500MG *ER* TAB PO SCH (21:34)
[2016-12-05 05:54] VITALS: BP 124/58
[2016-12-05] MEDS: QUEtiapine FUMARATE 25 MG TAB PO PRN ×2 (08:22→15:53)
[2016-12-05] MEDS: ESCITALOPRAM OXALATE 10 MG TAB (LEXAPRO) PO SCH (08:22)
--- NOTE | 2016-12-05 14:43 | IPN ---
DATE: 12/05/2016 SUBJECTIVE: "I am feeling better." OBJECTIVE: Patient is improving slowly. Patient complains of sedation early in the morning, but he prefers to keep the dosage of the medication since he feels it is helping him and is improving. He is motivated for treatment. The patient does have psychotic symptoms. No auditory or visual hallucinations or delusions. MENTAL STATUS EXAMINATION: Patient is dressed in [facility]. Patient has fair eye contact. Speech is slow and monotone. Mood is depressed and anxious. Affect is congruent with mood. No evidence of delusions or hallucinations. Memory, attention and concentration are fair. Patient is able to contract for safety. Insight and judgment is limited. ASSESSMENT: 1. Depression. 2. Suicidal ideation. 3. Substance abuse. PLAN: 1. Continue with Lexapro 20 mg by mouth every morning. 2. Continue with trazodone 150 mg by mouth at bedtime. 3. Continue with Depakote 1000 mg by mouth at bedtime. 4. Continue with Seroquel 25 mg by mouth twice a day as needed anxiety.
[2016-12-05 18:00] VITALS: BP 124/60
[2016-12-05] MEDS: DIVALPROEX 500MG *ER* TAB PO SCH (21:57)
[2016-12-05] MEDS: traZODone 50 MG TAB PO PRN (21:57)
[2016-12-06 06:25] VITALS: BP 126/62
[2016-12-06 08:16] LABS: ALBUMIN 3.5 GM/DL (3.2-5.2); ALBUMIN/GLOBULIN RATIO 1.09 (1.00-1.93); ALKALINE PHOSPHATASE 96 U/L (45-117); ALT/SGPT 90 U/L (12-78); AST/SGOT 34 U/L (15-37); BILIRUBIN,DIRECT < 0.1 MG/DL (0.0-0.2); BILIRUBIN,TOTAL 0.4 MG/DL (0.2-1.0); TOTAL PROTEIN 6.7 GM/DL (6.4-8.2)
[2016-12-06] MEDS: ESCITALOPRAM OXALATE 10 MG TAB (LEXAPRO) PO SCH (08:37)
[2016-12-06] MEDS: QUEtiapine FUMARATE 25 MG TAB PO PRN ×2 (08:38→21:29)
--- NOTE | 2016-12-06 09:07 | MHIPNPDOC ---
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 Patient indicates he had stopped taking his medications 3 days prior to the incident due to being out of town, adds he was feeling depressed and since he had not been taking his medications he "made a stupid decision" to go out drinking with his friends. Patient states prior to aforementioned incident he had been with alcohol for 6 months. Per EMR, patient has history of 2 prior suicide attempts, both at age 17. Household Appliances Salesperson met with patient today to assess treatment progress on inpatient unit. Patient rates current anxiety level as 6/10, indicates anxieties related to " the [employer], my DWI, and not knowing what's to come when I get back to [place]," denies depression, denies suicidal and homicidal ideation, denies urge to engage in self-injurious behavior. She indicates current medication regimen is effective and he reports improvement to symptoms, adds his anxiety is manageable and "natural given my circumstances," verbalizes awareness that when he is discharged he will be processed for his DWI with the [employer]. Household Appliances Salesperson and patient spoke at length guarding the importance of medication and treatment compliance, strong recommendation again made for patient to abstain from substance use or abuse. Patient indicates he is sleeping well, denies nightmares , reports improvement to energy and concentration and focus levels, reports appetite is stable. Patient denies symptoms of physical pain and presents with no signs of acute distress at time of interaction. Patient informs sports book writer he does not have a "stockpile" of medications in his [place], states he has no leftover Depakote and has approximately 8-9 "reserve" Lexapro tablets. Patient has agreed to turnover all unused medication to command at time of discharge, is aware new 7 days scripts will be made available to him at time of discharge. VITAL SIGNS: See below. NEW TEST RESULTS: 11/05/16 valproate level within normal limits, ALT elevated at 90. ALT on 11/30/16 was 60. Labs on admission indicated elevated chloride, glucose , and alkaline phosphatase MEDICAL/SURGICAL HISTORY: Chronic knee pain, history of nasal fracture 2, right hand fracture, left hand fracture, was time to think extraction Patient denies history of chronic medical conditions, denies seizure and head injury UDS positive for cannabinoids, EtOH 0.161 12/03/16 EKG sinus bradycardia with short GA interval. Patient is asymptomatic, denies symptoms of headache, shortness of breath, dizziness, chest pain, and palpitations. 12/06/16 valproate level 60.4 12/07/16 repeat labs pending CURRENT MEDICATIONS: See below. MENTAL STATUS EXAMINATION: Patient is a 26-year old male, who is pleasant and cooperative, easily engaged, makes good eye contact, exhibits adequate personal hygiene, is dressed in hospital clothing, ambulates with steady gait, appears stated age Speech: Is of mildly pressured, normal rhythm, volume, spontaneous, coherent Language skills are intact Thought processes including: Linear, logical, goal-directed Thought content: Rational, logical, no paranoia or tangentiality noted, no perseveration. Abstract reasoning, and computation: Appear intact Description of associations: Intact Description of abnormal or psychotic thoughts: Denies suicidal or homicidal ideation, denies auditory or visual hallucinations, does not appear to be responding to internal stimuli, is not endorsing bizarre or paranoid ideation, denies preoccupation with violence or obsessions. Judgment: Limited, some improvement noted Insight: Limited, some improvement noted Orientation: A and O 3 Recent and remote memory: Appear intact Attention span and concentration: Within normal limits Language: Adequate Fund of knowledge: Adequate Mood: "I feel better, just worried about the DWI in the [employer] but otherwise I'm okay." Patient denies depression, reports low-grade anxiety, no mood lability noted Affect: Constricted but brightens, congruent with mood DIAGNOSES: Bipolar I disorder, most recent episode mixed, polysubstance use disorder ASSESSMENT: Patient has adjusted to unit, is visible, engaging well with staff and peers, participating well in unit programming, and has presented with no behavior management challenges. Patient continues to show increasing insight regarding his substance abuse, medication noncompliance, and behaviors and events which led to current hospitalization, does not minimize gravity of situation, and expresses appropriate concern related to what his current hospitalization will mean in terms of his exiting the [employer]. Patient indicates he remains anxious related to recent DWI and "all the unknowns" pertaining to future with [employer]. Patient indicates current medication regimen is effective and he denies medication side effects, reiterates PRN Seroquel is helpful in controlling symptoms of anxiety and stabilizing mood. Patient is aware of recent lab results indicating elevated ALT, risks associated with medication regimen and substance abuse were reviewed with patient and patient was informed that he will need to follow-up with behavioral health/PCM within 3 days of discharge for repeat labs for monitoring purposes. Patient was also educated on the potential risks risks to his physical health of engaging in substance abuse while taking psychotropic medications, patient verbalizes understanding. EKG results were reviewed with patient who is asymptomatic and patient was informed he will need follow-up with outpatient provider for ongoing evaluation/ monitoring as indicated. Patient denies suicidal and homicidal ideation and verbalizes awareness of how to access supportive services on the unit if needed. Will continue to monitor patient's response to medications and will monitor for medication side effects. Will also continue to evaluate patient's safety and discharge readiness. Patient is aware [facility] meeting has been scheduled for tomorrow with discharge tentatively scheduled to follow meeting and patient reiterates that upon discharge he would like to return to [place] to resume outpatient psychotherapy and medication management services , adds after he has completed med board process he plans to move back to [place] to be close to family. Patient is aware that at time of discharge he will undergo behavioral health safety check and will be taken to an station to be processed for recent DWI, is aware recommendation will also be made for substance abuse treatment. MANAGEMENT PLAN: Continue Depakote ER 100 mg po q hs, trazodone 150 mg po q hs PRN insomnia, Lexapro 20 mg po daily, and Seroquel 25 mg po BID PRN anxiety/ agitation Follow-up labs ordered for 12/07/16 Maintain safety precautions Patient to attend groups and participate in unit programming to develop coping strategies Engage patient in discharge planning process and arrange meeting with [facility] to evaluate safe discharge planning when appropriate Patient to follow up with [facility] upon discharge TIME SPENT: 35 minutes. Vital Signs Vital Signs Date Time Temp Pulse Resp B/P (MAP) Pulse Ox O2 Delivery O2 Flow Rate FiO2 12/06/16 06:25 97.6 52 18 126/62 (83) 11/30/16 14:24 96 Room Air Laboratory Data 24H Labs Laboratory Tests 2 12/06/16 06:48: Aspartate Amino Transf (AST/SGOT) 34, Alanine Aminotransferase (ALT/SGPT) 90H, Alkaline Phosphatase 96, Total Bilirubin 0.4, Direct Bilirubin < 0.1, Total Protein 6.7, Albumin 3.5, Albumin/Globulin Ratio 1.09, Valproic Acid (Depakene) Level 60.4 Current Medications Current Medications Acetaminophen (Tylenol Tab) 650 mg Q6HP PRN PO HEADACHE or DISCOMFORT; Start at 15:30; Stop 12/30/16 at 15:29 Al Hydrox/Mg Hydrox/Simethicone (Mylanta) 30 ml Q4HP PRN PO HEARTBURN/ INDIGESTION; Start 11/30/16 at 15:30; Stop 12/30/16 at 15:29 Divalproex Sodium (Depakote Er) 1,000 mg QHS PO Last administered on 12/05/16 21:57; Start 11/30/16 at 21:00; Stop 12/30/16 at 20:59 Escitalopram Oxalate (Lexapro) 20 mg DAILY PO Last administered on 12/06/16 08: 37; Start 11/30/16 at 09:00; Stop 12/30/16 at 08:59 Home Med (Med Rec Complete!) ASDIRECTED XX ; Start 11/30/16 at 12:30; Stop at 12:31; Status DC Hydroxyzine HCl (Atarax) 50 mg Q4HP PRN PO ANXIETY Last administered on 14:40; Start 11/30/16 at 15:30; Stop 12/03/16 at 19:20; Status DC Magnesium Hydroxide (Milk Of Magnesia) 30 ml DAILYPRN PRN PO CONSTIPATION Last administered on 12/02/16 21:12; Start 11/30/16 at 15:30; Stop 12/30/16 at 15:29 Quetiapine Fumarate (SEROquel) 25 mg BID PRN PO anxiety/agitation Last administered on 12/06/16 08:38; Start 12/03/16 at 19:30; Stop 01/02/17 at 19:29 Trazodone HCl (Desyrel) 150 mg QHSP PRN PO INSOMNIA Last administered on 21:57; Start 11/30/16 at 15:30; Stop 12/30/16 at 15:29 Allergies Coded Allergies: No Known Allergies (Unverified , 05/02/16) Elvira Amaro Dec 06, 2016 09:07
[2016-12-06 18:10] VITALS: BP 113/56
[2016-12-06] MEDS: traZODone 50 MG TAB PO PRN (21:29)
[2016-12-06] MEDS: DIVALPROEX 500MG *ER* TAB PO SCH (21:30)
[2016-12-07 07:07] VITALS: BP 124/55
[2016-12-07] MEDS: ESCITALOPRAM OXALATE 10 MG TAB (LEXAPRO) PO SCH (08:08)
[2016-12-07] MEDS: QUEtiapine FUMARATE 25 MG TAB PO PRN (08:08)
[2016-12-07 08:21] LABS: ALBUMIN 3.8 GM/DL (3.2-5.2); ALBUMIN/GLOBULIN RATIO 1.15 (1.00-1.93); ALKALINE PHOSPHATASE 97 U/L (45-117); ALT/SGPT 89 U/L (12-78); AST/SGOT 34 U/L (15-37); BILIRUBIN,DIRECT < 0.1 MG/DL (0.0-0.2); BILIRUBIN,TOTAL 0.5 MG/DL (0.2-1.0); TOTAL PROTEIN 7.1 GM/DL (6.4-8.2)
[2016-12-07] MEDS ORDERED: LEXA1TAB2 PO (12:38)
[2016-12-07] MEDS ORDERED: DEPA500T2 PO (12:43)
[2016-12-07] MEDS ORDERED: QUET1TAB7 PO (12:43)
[2016-12-07] MEDS ORDERED: TRAZO50TA PO (12:43)
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
== END 2016-12-07 13:15 | disposition home or self-care (01) | DRG 885 ==
LOC: M ED 07:14 → M ED INP 11:14 → M PSY 14:00
PROVIDERS: ADMIT Psychiatry & Neurology Psychiatry; ATTEND Psychiatry & Neurology Psychiatry
DX: F31.60 Bipolar disorder, current episode mixed, unspecified (principal); R45.851 Suicidal ideations; F19.10 Other psychoactive substance abuse, uncomplicated; Z79.899 Other long term (current) drug therapy; M25.561 Pain in right knee; F17.210 Nicotine dependence, cigarettes, uncomplicated; Z80.9 Family history of malignant neoplasm, unspecified